=== PATIENT | male | born 1960 | race Caucasian/White ===

== ENCOUNTER 2016-12-09 13:12 | Outpatient (CLI) | payer OTHER ==
--- NOTE | 2016-12-09 16:27 | DIAGNOSTIC IMAGING REPORT ---
PROCEDURE: US VENOUS - BILATERAL EXT INDICATION: BILAT VARICOSE VEIN PAIN,ITCING TECHNIQUE: Duplex sonography of the deep and superficial venous system in both lower extremities was performed. Compression and augmentation techniques were used. The patient was scanned in the upright position. Surveillance of the venous system during Valsalva maneuver when appropriate was performed. COMPARISON: None. FINDINGS: Each interrogated segment of the deep vein demonstrates normal compressibility, augmentation, and normal color Doppler flow without filling defect. No thrombus in either greater saphenous or short saphenous vein. There is venous reflux in the right greater saphenous vein. Reflux duration is 3.6 seconds. The vein measures 8 mm in maximal diameter in the distal segment. There is venous reflux in the left greater saphenous vein. Reflux duration is 4.0 seconds. The vein measures 7 mm in maximal diameter in the proximal segment. There is venous reflux in the right common femoral vein for a duration of 2.9 seconds and in the left common femoral vein for a duration of 2.4 seconds. There is normal venous valve closure in the superficial femoral vein bilaterally. There is a prominent patent venous varicosity immediately adjacent to the distal right greater saphenous vein There is a large thrombosed venous varicosity immediately adjacent to the partially thrombosed distal greater saphenous vein on the left. Varicosity diameter is approximately 18 mm. IMPRESSION: 1. There is venous insufficiency in the fat and femoral vein bilaterally. 2. Venous insufficiency in proximal greater saphenous veins bilaterally. 3. Superficial thrombophlebitis in the left lower leg involving a large varicosity and segment of the distal greater saphenous vein. 4. No DVT.
== END 2016-12-09 23:00 ==
LOC: US SRH 13:12
DX: I87.2 Venous insufficiency (chronic) (peripheral) (principal); I80.299 Phlebitis and thrombophlebitis of other deep vessels of unspecified lower extremity